=== PATIENT | male | born 1955 | race Native Hawaiian/Other Pacific Islander ===

== ENCOUNTER 2019-04-13 18:53 | Outpatient (CLI) | payer OTHER ==
[2019-04-13] MEDS ORDERED: CLONAZEP ODT1 MG PO (19:17)
[2019-04-13] MEDS ORDERED: CARV6.25 PO (19:18)
[2019-04-13] MEDS ORDERED: ASPIRIN81 M1 PO (19:18)
[2019-04-13] MEDS ORDERED: SIMV10TA PO (19:19)
[2019-04-13] MEDS ORDERED: VITAMIN D350000 UNI1 PO (19:20)
[2019-04-13] MEDS ORDERED: BUPR150T PO (19:20)
[2019-04-13] MEDS ORDERED: SOMA350 MG PO (19:21)
[2019-04-13] MEDS ORDERED: HYDROCO/APAP1 TA4 PO (19:21)
[2019-04-13] MEDS ORDERED: GUAI600T70 PO (19:22)
[2019-04-13] MEDS ORDERED: 904272561 PO (19:22)
[2019-04-13] MEDS ORDERED: OMEP40CA PO (19:23)
[2019-04-13] MEDS ORDERED: OXYB5TAB56 PO (19:23)
[2019-04-13] MEDS ORDERED: PREDNISONE2.5 MG PO (19:24)
[2019-04-13] MEDS ORDERED: ALBUTEROL0.083 % INH (19:24)
[2019-04-13] MEDS ORDERED: ONDANSETRON4 M2 PO (19:25)
[2019-04-13] MEDS ORDERED: MULTIVITAMI1 PO (19:25)
[2019-04-13] MEDS ORDERED: CALCI21 PO (19:25)
[2019-04-13] MEDS ORDERED: TYLENOL #4 PO (19:26)
[2019-04-13] MEDS ORDERED: OMEGA 3340 MG PO (19:26)
[2019-04-13] MEDS ORDERED: COLLAGEN PO (19:26)
== END 2019-04-13 19:03 | disposition short-term general hospital (02) ==
LOC: AMB 18:53
DX: R41.82 Altered mental status, unspecified (principal)
CPT/HCPCS: A0425; A0427

== ENCOUNTER 2019-04-13 19:05 | Inpatient (IN) | payer OTHER ==
[~2019-04-13] VITALS: Ht 177.8 cm; Wt 74.2 kg
[2019-04-13] VITALS (10 sets, daily range): BP systolic 117–179; BP diastolic 62–107; TEMP 98–99
[2019-04-13] MEDS ORDERED: CLONAZEP ODT1 MG PO (19:17)
[2019-04-13] MEDS ORDERED: ASPIRIN81 M1 PO (19:18)
[2019-04-13] MEDS ORDERED: CARV6.25 PO (19:18)
[2019-04-13] MEDS ORDERED: SIMV10TA PO (19:19)
[2019-04-13] MEDS ORDERED: VITAMIN D350000 UNI1 PO (19:20)
[2019-04-13] MEDS ORDERED: BUPR150T PO (19:20)
[2019-04-13] MEDS ORDERED: HYDROCO/APAP1 TA4 PO (19:21)
[2019-04-13] MEDS ORDERED: SOMA350 MG PO (19:21)
[2019-04-13] MEDS ORDERED: 904272561 PO (19:22)
[2019-04-13] MEDS ORDERED: GUAI600T70 PO (19:22)
[2019-04-13] MEDS ORDERED: OXYB5TAB56 PO (19:23)
[2019-04-13] MEDS ORDERED: OMEP40CA PO (19:23)
[2019-04-13] MEDS ORDERED: ALBUTEROL0.083 % INH (19:24)
[2019-04-13] MEDS ORDERED: PREDNISONE2.5 MG PO (19:24)
[2019-04-13] MEDS ORDERED: ONDANSETRON4 M2 PO (19:25)
[2019-04-13] MEDS ORDERED: CALCI21 PO (19:25)
[2019-04-13] MEDS ORDERED: MULTIVITAMI1 PO (19:25)
[2019-04-13] MEDS ORDERED: OMEGA 3340 MG PO (19:26)
[2019-04-13] MEDS ORDERED: COLLAGEN PO (19:26)
[2019-04-13] MEDS ORDERED: TYLENOL #4 PO (19:26)
[2019-04-13 19:59] LABS: PLATELET COUNT 285 K/uL (142-355)
[2019-04-13 20:13] LABS: PARTIAL THROMBOPLASTIN TIME 27.2 SECONDS (24.5-33.6)
[2019-04-13 20:18] LABS: SODIUM 126 mmol/L (136-145)
[2019-04-13 20:20] LABS: POTASSIUM 5.2 mmol/L (3.6-5.2)
[2019-04-14] VITALS (19 sets, daily range): BP systolic 120–161; BP diastolic 59–93; TEMP 98.7–99.1; Ht 177.8 cm; Wt 74.2 kg
[2019-04-14 05:17] LABS: PLATELET COUNT 169 K/uL (142-355)
[2019-04-14 05:43] LABS: POTASSIUM 3.7 mmol/L (3.6-5.2)
[2019-04-15] VITALS: BP 143/71; TEMP 98.8
[2019-04-15 04:00] VITALS: BP 123/68; TEMP 98.7
[2019-04-15 05:09] LABS: PLATELET COUNT 139 K/uL (142-355)
[2019-04-15 08:00] VITALS: BP 144/68; TEMP 97.7
[2019-04-15 13:12] LABS: PARTIAL THROMBOPLASTIN TIME 28.3 SECONDS (24.5-33.6)
[2019-04-15 20:00] VITALS: BP 142/70; TEMP 98.9
[2019-04-16] VITALS: BP 146/73; TEMP 98.2
[2019-04-16 04:00] VITALS: BP 150/72; TEMP 98.6
[2019-04-16 05:51] LABS: PLATELET COUNT 143 K/uL (142-355)
[2019-04-16 06:45] LABS: PARTIAL THROMBOPLASTIN TIME 28.4 SECONDS (24.5-33.6)
[2019-04-16 08:29] VITALS: BP 141/72; TEMP 97.7
[2019-04-16 12:09] VITALS: BP 166/75; TEMP 98
[2019-04-16 16:21] VITALS: BP 178/82; TEMP 97.9
[2019-04-16 20:18] VITALS: BP 183/79; TEMP 98.1
[2019-04-17] VITALS: BP 158/74; TEMP 98.1
[2019-04-17 04:00] VITALS: BP 165/78; TEMP 97.8
[2019-04-17 07:25] VITALS: BP 180/76; TEMP 97.7
[2019-04-17 09:47] LABS: PLATELET COUNT 146 K/uL (142-355)
[2019-04-17 09:51] LABS: POTASSIUM 4.2 mmol/L (3.6-5.2)
[2019-04-17 12:00] VITALS: BP 173/85; TEMP 98.1
[2019-04-17] MEDS ORDERED: IPRATROPIUM/ INH (12:11)
== END 2019-04-17 18:29 | disposition home or self-care (01) | DRG 100 ==
LOC: ED 19:15 → ICU 20:35 → MED/SURG 20:35 → ICU 20:35 → MED/SURG 04-14 19:12 → ICU 04-14 19:12 → MED/SURG 04-17 18:29
PROVIDERS: Emergency Medicine; Student in an Organized Health Care Education/Training Program; ADMIT Internal Medicine
DX: G40.89 Other seizures (principal); I50.21 Acute systolic (congestive) heart failure; E87.1 Hypo-osmolality and hyponatremia; J44.1 Chronic obstructive pulmonary disease with (acute) exacerbation; D62 Acute posthemorrhagic anemia; E87.2 Acidosis; I13.0 Hypertensive heart and chronic kidney disease with heart failure and stage 1 through stage 4 chronic kidney disease, or unspecified chronic kidney disease; N17.8 Other acute kidney failure; I48.91 Unspecified atrial fibrillation; R00.0 Tachycardia, unspecified; R06.82 Tachypnea, not elsewhere classified; I25.10 Atherosclerotic heart disease of native coronary artery without angina pectoris; D72.828 Other elevated white blood cell count; R09.02 Hypoxemia; N18.3 Chronic kidney disease, stage 3 (moderate)
CPT/HCPCS: 36415; 51702; 80048; 80053; 80307; 81000; 82550; 82607; 82728; 82746; 83540; 83550; 84300; 84484; 85014; 85018; 85027; 85379; 85610; 85730; 86850; 86900; 86901; 86922; 87040; 93005; 94640; 94664; 94760; 96372; 96374; 96375; 96376; 99285; J0153; J0696; J1650; J2060; J2543; J2930; J3490; P9016; Q9963

== ENCOUNTER 2019-06-30 21:41 | Outpatient (CLI) | payer OTHER ==
[~2019-06-30 21:41] MED LIST: 904272561 PO; ALBUTEROL0.083 % INH; ASPIRIN81 M1 PO; BUPR150T PO; CALCI21 PO; CARV6.25 PO; CLONAZEP ODT1 MG PO; COLLAGEN PO; GUAI600T70 PO; HYDROCO/APAP1 TA4 PO; IPRATROPIUM/ INH; MULTIVITAMI1 PO; OMEGA 3340 MG PO; OMEP40CA PO; ONDANSETRON4 M2 PO; OXYB5TAB56 PO; PREDNISONE2.5 MG PO; SIMV10TA PO; SOMA350 MG PO; TYLENOL #4 PO; VITAMIN D350000 UNI1 PO
== END 2019-06-30 22:00 | disposition short-term general hospital (02) ==
LOC: AMB 21:41
DX: R41.82 Altered mental status, unspecified (principal)
CPT/HCPCS: A0425; A0427

== ENCOUNTER 2019-09-07 10:30 | Outpatient (CLI) | payer OTHER | END 2019-09-07 20:12 | disposition home or self-care (01) | LOC: LAB 10:30 | PROVIDERS: Nurse Practitioner Family | DX: I50.9 Heart failure, unspecified (principal) | CPT/HCPCS: 80053 ==

== ENCOUNTER 2019-12-07 16:31 | Outpatient (CLI) | payer OTHER ==
[2019-12-07 17:23] LABS: POTASSIUM 3.6 mmol/L (3.6-5.2)
[2019-12-07 17:40] LABS: PLATELET COUNT 139 K/uL (142-355)
== END 2019-12-07 21:19 | disposition home or self-care (01) ==
LOC: LAB 16:31
PROVIDERS: Internal Medicine
DX: D64.89 Other specified anemias (principal); E87.1 Hypo-osmolality and hyponatremia
CPT/HCPCS: 80053; 85027

== ENCOUNTER 2020-01-01 08:00 | Inpatient (IN) | payer OTHER ==
[2020-01-01] VITALS (8 sets, daily range): BP systolic 104–199; BP diastolic 48–124; TEMP 97.3–100.9; Ht 177.8 cm; Wt 64.4 kg
[~2020-01-01] VITALS: Ht 177.8 cm; Wt 64.4 kg
[2020-01-01] MEDS ORDERED: CARV25TA PO (08:27)
[2020-01-01] MEDS ORDERED: HYDR10TA47A PO (08:29)
[2020-01-01 08:33] LABS: PLATELET COUNT 206 K/uL (142-355)
[2020-01-01] MEDS ORDERED: ALPR0.2566 PO ×2 (08:33→18:32)
[2020-01-01] MEDS ORDERED: MOBIC15 MG PO ×2 (08:34→18:46)
[2020-01-01] MEDS ORDERED: AMLODIPINE BESYLATE PO (08:34)
[2020-01-01] MEDS ORDERED: RISP0.5T2 PO (08:35)
[2020-01-01] MEDS ORDERED: ROWEEPRA750 MG PO (08:35)
[2020-01-01 08:36] LABS: POTASSIUM 4.1 mmol/L (3.6-5.2); SODIUM 143 mmol/L (136-145)
[2020-01-01] MEDS ORDERED: PEPCID40 MG PO ×2 (08:36→15:00)
[2020-01-01] MEDS ORDERED: FLUOXETINE20 M1 PO (08:39)
[2020-01-01] MEDS ORDERED: FURO20TA67 PO (08:40)
[2020-01-01] MEDS ORDERED: PANTOPRAZOLE 40MG TA PO (08:40)
[2020-01-01 08:44] LABS: PARTIAL THROMBOPLASTIN TIME 22.4 SECONDS (24.5-33.6)
[2020-01-01] MEDS ORDERED: TYLENOL325 MG PO (14:57)
[2020-01-01] MEDS ORDERED: IRON325 MG PO (14:59)
[2020-01-01] MEDS ORDERED: SODI PO (15:02)
[2020-01-01] MEDS ORDERED: OMEPRAZOLE DR20 MG PO (15:05)
[2020-01-01] MEDS ORDERED: [UNRECOGNIZED DRUG - OTHER] TD (15:10)
--- NOTE | 2020-01-01 16:06 | NUR ---
MEDICATION VERIFIED WITH . ASKED NAME OF HOSPICE AAGENCY. UNSURE,'BUT THE NURSE WILL COME BT LATER'. REQUESTED HOME MED SHEET HOSPICE IS GIVING & REQUESTED PT'S HOME TRILOGY. FAMILY TO NOIFY HOSPICE NURSE & TO BRING FROM HOME. HOSPICE NURSE TO BRING COPY OF DNR.
--- NOTE | 2020-01-01 18:16 | NUR ---
DR MARIE NOTIFIED OF SURGICAL CONSULT FOR COLONOSCOPY IN AM. DR MARIE STATES HE WILL BE IN [facility] DOING SURGERY TOMORROW.
--- NOTE | 2020-01-01 18:20 | NUR ---
DR SPENCER NOTIFIED THAT DR MARIE WILL BE IN [facility] TOMORROW.
[2020-01-01] MEDS ORDERED: SOMA350 MG PO (18:35)
[2020-01-01] MEDS ORDERED: CLON0.1T16 PO (18:38)
[2020-01-01] MEDS ORDERED: CLIN300C PO (18:39)
[2020-01-01] MEDS ORDERED: FENT12DI3 TD (18:43)
[2020-01-01] MEDS ORDERED: SODI1TAB PO (18:51)
[2020-01-01] MEDS ORDERED: SENNO8.6 MG PO (18:52)
[2020-01-01] MEDS ORDERED: ALBU90AE13 INH (18:53)
[2020-01-01] MEDS ORDERED: VITAMIN D22000 UNIT PO (18:56)
--- NOTE | 2020-01-01 22:00 | NUR ---
UNABLE TO GET PT TO TAKE PO MEDS. PT WILL NOT STAY AWAKE AND DOESN'T SEEM TO UNDERSTAND WHAT HE NEEDS TO DO. WILL ATTEMPT AGAIN LATER WHEN MORE AWAKE.
--- NOTE | 2020-01-01 22:15 | NUR ---
DR. HENNING NOTIFIED OF CONCERNS REGARDING PT BEING ALONE AND UNRESPONSIVE. ORDER RECEIVED TO TRANSFER PT TO ICU FOR CONTINUED CARE AND CLOSER OBSERVATION. PT NOTIFIED OF PT'S TRANSFER AND IS IN AGREEMENT WITH DECISION.
--- NOTE | 2020-01-01 22:45 | NUR ---
PT TRANSFERRED TO ICU VIA BED WITH SR UP X 4. REPORT GIVEN TO DESTINEY KESSLER RN.
--- NOTE | 2020-01-01 22:45 | NUR ---
PT BROUGHT TO ICU FROM MED/SURG FLOOR BY BED, REPORT FROM VITALIY BAL RN, PT IS LYING ON HIS STOMACH AT THIS TIME, NAD NOTED. VITALIY STATED THAT HE HAD PULLED OUT HIS IV, SO A NEW ONE MUST BE DONE. AFTER 1 UNSUCCESSFUL ATTEMPT, AN IV WAS STARTED TO RT HAND, FLUSHES WELL. 2 STAFF MEMBERS ASSISTED WITH KEEPING PATIENT STILL THROUGHOUT PROCEDURE. IV SITE IS WRAPPED WITH KERLIX AND KOBAN. SKIN TEAR NOTED TO LEFT ELBOW ABOUT THE SIZE OF A DIME, IT IS BLEEDING, 4X4'S AND PAPER TAPE PLACED OVER WOUND, SECURED WITH KERLIX AND TAPE. ATIVAN GIVEN TO HELP CALM PATIENT. AFTER APPROXIMATELY 15 MINUTES, PT IS RESTING QUIETLY WITH EYES CLOSED. NAD NOTED
[2020-01-02] VITALS (9 sets, daily range): BP systolic 110–142; BP diastolic 64–80; TEMP 98.5–98.6
--- NOTE | 2020-01-02 01:00 | NUR ---
WITH IV SITE INTACT, AND PATIENT NOT COOPERATIVE ABOUT TAKING MEDICATIONS (PER VITALIY BAL RN NURSE ON MED/SURG FLOOR), SPINDLE TESTER CALLED DR HENNING ABOUT MAKING MEDICATIONS BY IV INSTEAD OF BY MOUTH. SPINDLE TESTER CALLED PHARM-D TO DISCUSS WHICH MEDICATIONS SHE COULD CHANGE TONIGHT, THE REST WOULD WAIT TIL MORNING.
--- NOTE | 2020-01-02 04:51 | NUR ---
PATIENT WAS ADMITTED WITH SURGICAL CONSULT FOR COLONSCOPY AND IS PRESENTLY ON HOSPICE, UNRESPONSIVE, 64YOM, AMS, EPILEPITICUSUNCONTROLLED HTN, COPD, SEIZURE ACTIVITY-NEW ONSITE AND 2 TIMES IN ER AND ONE LASTING 2 MINUTES, ELEVATED B/P AT 199/124, ACTRIAL FIB WITH RVR, CHF, COPD, CAD, MA, HYPERLIPIDEMIA, FE DEF ANEMIA, CABG AND SEE EMR FOR MORE INFORMAITON ON MD'S HISTORY/REPORT. NO DIET ORDER AND LABS REVEAL WBC, MCV, RDW, CREAT AND GL 161 ALL ELEVATED AND RBC, HGB, HCT, MCHC, ALT AND ALB 3.2 ALL DEPRESSED AND PATIENT IS 5'10" AT 144.4 LBS. AND IBW = 166+/-10% (149 T0 183 LBS.) KCAL NEEDS FOR IBW X 25 TO 30 = 1800 TO 2300, X 35 TO 40 = 2600 TO 3000 KCAL/DAY AND PROETIN NEEDS X .8 TO 1.5 = 60 TO 113 GRAMS A DAY AND FLUIDS FOR WEIGHT X 25 TO 30 1600 TO 2000 ML PER DAY. BMI = 20.7 WNL'S AND IS 87% IBW. WITH SURGERY WILL NEED PROTEIN AT THE HIGHER PRECENT TO PROMOTE HEALING. RECOMMENDATIONS: 1-ADVANCE CHAY AND IF CAN'T TOLERATE THEN NEEDS A TUBE FEEDING OR TPN TO MEET NUTRITIONAL NEEDS. (SEE KCAL, PROTEIN AND FLUID NEEDS ABOVE AND RD IS AVAILABLE NEEDED). 2-IF SURGERY NEED TO ADD VITAMIN C 500 MG BID 3-ADD ZNSO4 220 MG PER DAY AND D/C IN 14 DAYS IF SURGERY 4-ADD A MVI 1 PO Q DAY 5-IF EATING <75% OF MEALS ADD A SUPPLEMENT WITH MEALS 6-IF EATING <50% OF MEALS ADD AN APPEPITE STIMULANT 7-IF SURGERY ADD PROTEIN 1 SCOOP OR 30 ML BID.
--- NOTE | 2020-01-02 05:51 | NUR ---
PT TRYING TO GET OUT OF BED, PULLING AT EKG LEADS, AND COVERS, PT STATES "I HAVE TO PEE", ASSURED PT HE HAS A CATHETER AND DOESN'T NEED TO PEE. PT IS CONFUSED AND DISORIENTED, UNSURE OF WHERE HE IS AND WANTS TO KNOW HOW HE GOT HERE. ATTEMPTED TO RE-ORIENT PATIENT TO NO AVAIL. ATIVAN 2MG IV GIVEN. WILL CONTINUE TO MONITOR
--- NOTE | 2020-01-02 07:00 | NUR ---
RECEIVED REPORT FROM DESTINEY KESSLER RN. PATIENT IS RESTING WITH EYES CLOSED AT THIS TIME.
--- NOTE | 2020-01-02 08:50 | NUR ---
PATIENT IS ATTEMPTING TO GET UP OUT OF BED. PATIENT IS PULLING ON HIS BLOOD PRESSURE CUFF AND MONITOR. ATTEMPT MADE TO REDIRECT PATIENT BUT WAS UNABLE TO PATIENT REPOSITIONED BACK ON TO THE BED.DESTINEY KESSLER RN
--- NOTE | 2020-01-02 09:04 | NUR ---
PATIENT GIVEN ATIVAN 2 MG IV ORDERED FOR AGITATION AND RESTLESSNESS. WILL REASSESS POST MEDICATION FOR DECREASE IN STIMULI
--- NOTE | 2020-01-02 10:14 | NUR ---
PATIENT IS RESTING QUIETLY WITH EYES CLOSED AT THIS TIME.
--- NOTE | 2020-01-02 11:16 | NUR ---
UNCLE HERE TO SEE PATIENT AT THIS TIME. PATIENT NOTED ATTEMPT TO GET UP FROM THE BED WHILE GETTING BREATHING TREATMENT. PATIENT REDIRECTED BACK AND HE WAS ABLE TO REPOSITION BACK IN THE BED WITH ASSISTANCE.
--- NOTE | 2020-01-02 12:19 | NUR ---
PATIENT STATED HE NEEDED TO USE THE BATHROOM AND PULLED HIS LEADS OFF AND BLOOD PRESSURE CUFF FROM HIS RIGHT LOWER EXTREMITY. PATIENT WAS ABLE TO SIT UP AT THE BEDSIDE AND STAND UP BUT IS UNSTEADY AND REQUIRES MINIMUM TO MODERATE ASSISTANCE TO THE BSC. PATIENT IS WEAK. PATIENT DID HAVE A LARGE BOWEL MOVEMENT STOOL NOTED GREENISH/BLACK IN COLOR. PATIENT CLEANED AND ASSISTED BACK IN BED.
--- NOTE | 2020-01-02 13:18 | NUR ---
PATIENTS FOOD TRAY SET UP BY THE BED AND PATIENT DID NOT WANT ANY AT THIS TIME. PATIENT DID DRINK HIS TEA.
--- NOTE | 2020-01-02 14:53 | NUR ---
PATIENT NOTED WITH A LOW GRADE TEMP 100.6 ORAL. PATIENT GIVEN TYLENOL AT THIS TIME . WILL REASSESS FOR DECREASE IN TEMP.
--- NOTE | 2020-01-02 15:53 | NUR ---
REASSESSED AND TEMP NOTED 98.6 AXILLARY.
--- NOTE | 2020-01-02 16:25 | NUR ---
PATIENT REQUESTING WATER TO DRINK AT THIS TIME. PATIENT OFFERED ICED WATER AND WAS ABLE TO DRINK WITHOUT DIFFICULTY.
--- NOTE | 2020-01-02 17:29 | NUR ---
LAB HERE TO DRAW BLOOD AT THIS TIME.
--- NOTE | 2020-01-02 18:14 | NUR ---
FAMILY HERE TO SEE PATIENT. BROTHER HERE TALKING TO PATIENT AT THE BEDSIDE.
[2020-01-02 18:46] LABS: PLATELET COUNT 160 K/uL (142-355)
[2020-01-02 19:00] LABS: POTASSIUM 3.7 mmol/L (3.6-5.2)
--- NOTE | 2020-01-02 19:45 | NUR ---
PT TRANSFERRED TO 1129 FROM ICU WITH DX: SEIZURES,AMS,HTN,COPD UNDER SERVICES OF DR. HEALY.
--- NOTE | 2020-01-02 20:23 | NUR ---
TRANSFERRED TO ROOM 1129 VIA WHEELCHAIR. REPORT WAS GIVEN TO JORDANA CHOU RN.
[2020-01-03] VITALS: BP 146/71; TEMP 101
--- NOTE | 2020-01-03 03:30 | NUR ---
PT IV SITE TO R HAND INFILTRATED AT THIS TIME.
[2020-01-03 04:00] VITALS: BP 166/52; TEMP 100.5
--- NOTE | 2020-01-03 05:00 | NUR ---
UNABLE TO OBTAIN IV SITE AT THIS TIME X 2 ATTEMTS. PT TOLERATED WELL.
[2020-01-03] MEDS ORDERED: CARI350T15 PO (13:29)
[2020-01-03] MEDS ORDERED: LEVE500T5 PO (13:29)
[2020-01-03] MEDS ORDERED: SOD CHLORIDE1 GM PO (13:30)
[2020-01-03 15:32] LABS: PLATELET COUNT 167 K/uL (142-355)
[2020-01-03 15:41] LABS: POTASSIUM 3.3 mmol/L (3.6-5.2)
[2020-01-03 20:00] VITALS: BP 149/74; TEMP 98.5
[2020-01-04] VITALS: BP 115/63; TEMP 98.1
[2020-01-04 04:00] VITALS: BP 141/67; TEMP 97.7
--- NOTE | 2020-01-04 07:00 | NUR ---
PT RESTING IN LF. CLOUD TO BSD WITH CL YELLOW URINE.
--- NOTE | 2020-01-04 10:19 | NUR ---
PT'S CALLED ON PT.
--- NOTE | 2020-01-04 12:45 | NUR ---
1 cm skin tear l elbow cleaned & bandaid applied. pt sitting up in bed feeding self lunch.
--- NOTE | 2020-01-04 14:06 | NUR ---
D/C INSTRUCTIONS TO PT & . VERBALIZED UNDERSTANDING. PT CONFUSED ,SPEECH RAMBLING PTTALKED ABOUT' WHEN I CAME IN HERE & I SURVIVED CPR'. SAIS' NOW YOU SEE WHAT I HAVE BEEN TALKING ABOUT.
--- NOTE | 2020-01-04 14:29 | NUR ---
PT USED URINAL & VOIDED 300ML CLEAR YELLOW URINE. HAD TO OBTAIN A FULL O2 TANK FROM HOME.
--- NOTE | 2020-01-04 15:00 | NUR ---
CHECKED PT'S MEDS AT HOME, NEEDS A SCRIPT FOR XANAX 0.25MG. HOSPICE WILL NOT BE ABLE TO SEE HIM BEFORE TOMORROW. DR JONATHAN PARSONS HERE. SCRIPT WROTE FOR MED & given to .
--- NOTE | 2020-01-04 15:10 | NUR ---
PT D/C STABLE ON O2 AT 2L/NC VIA WC TO PRIVATE AUTO. D/C'D WITH HOME O2 & HOME TRILOGY.
== END 2020-01-04 15:10 | disposition home or self-care (01) | DRG 101 ==
LOC: ED 08:02 → ICU 09:15 → MED/SURG 09:15 → ICU 22:15 → MED/SURG 01-02 20:00
PROVIDERS: Internal Medicine; ADMIT Hospitalist
DX: G40.802 Other epilepsy, not intractable, without status epilepticus (principal); E87.1 Hypo-osmolality and hyponatremia; I48.91 Unspecified atrial fibrillation; J44.9 Chronic obstructive pulmonary disease, unspecified; F41.8 Other specified anxiety disorders; K21.9 Gastro-esophageal reflux disease without esophagitis; I48.0 Paroxysmal atrial fibrillation; I25.10 Atherosclerotic heart disease of native coronary artery without angina pectoris; R41.82 Altered mental status, unspecified
CPT/HCPCS: 36415; 51702; 80053; 80320; 81000; 82550; 83880; 84484; 85027; 85610; 85730; 87040; 87502; 93005; 94640; 94664; 94760; 96360; 96374; 96375; 96376; 99284; J1650; J1940; J1953; J2060; J2780; J3490